=== PATIENT | female | born 1985 | race Caucasian/White ===

== ENCOUNTER 2024-10-10 15:33 | Observation (INO) | payer OTHER ==
[2024-10-10 15:40] LABS: Glucose,Whole Blood 211 mg/dL (70-110)
--- NOTE | 2024-10-10 16:00 | ED ---
Female Urogenital HPI - General Source: patient, RN notes reviewed Mode of arrival: wheelchair Limitations: no limitations - History of Present Illness MD Complaint: vaginal bleeding <Jacqui Correa - Last Filed: 10/10/24 15:59> <Yoli Hernández - Last Filed: 10/11/24 00:52> - General Chief complaint: Vaginal Bleeding Stated complaint: Vaginal Bleeding/Possible Miscarry Time Seen by Provider: 10/10/24 15:55 - History of Present Illness Initial comments: Quick Note: This is a 39-year-old female who presents to the emergency department for vaginal bleeding. She was told a week ago that she had a miscarriage at 8 weeks when she had an ultrasound and no heartbeat was ident ified. She was not having any bleeding at that time. States that yesterday she started to develop vaginal bleeding which has since been constant. (Jacqui Correa) 39-year-old female who presents emergency department for vaginal bleeding. Patient is G2, P1 and was approximately 8 weeks last week at her first ultrasound. She does follow with an out of network CADD TECHNICIAN. At the ultrasound there was no heartbeat identified. Patient was not having any bleeding until yesterday. States that this morning she started having very significant, bright red blood with clots. She has mild abdominal cramping. Patient feels lightheaded and dizzy when she stands. She denies dysuria, hematuria or difficulty voiding. Denies diarrhea, constipation, black or bloody stools. No concern for sexually transmitted infections. No nausea or vomiting. Denies syncope. No other alleviating, precipitating or modifying factors (Yoli Hernández) - Related Data Home Medications Medication Instructions Recorded Confirmed INSULIN LISPRO (humaLOG) [humaLOG] 0 units SQ DIRECTED 03/24/19 03/24/19 Insulin Glargine (Lantus) [Lantus] 0 unit SQ HS 03/24/19 03/24/19 Allergies Allergy/AdvReac Type Severity Reaction Status Date / Time No Known Allergies Allergy Verified 03/24/19 16:38 Review of Systems ROS Other: All systems not noted in ROS Statement are negative. <Jacqui Correa - Last Filed: 10/10/24 15:59> ROS Other: All systems not noted in ROS Statement are negative. <Yoli Hernández - Last Filed: 10/11/24 00:52> ROS Statement: Those systems with pertinent positive or pertinent negative responses have been documented in the HPI. Past Medical History Past Medical History: Dementia History of Any Multi-Drug Resistant Organisms: None Reported Additional Past Surgical History / Comment(s): wisdom teeth removed. Past Anesthesia/Blood Transfusion Reactions: No Reported Reaction Past Psychological History: No Psychological Hx Reported Smoking Status: Never smoker Past Alcohol Use History: None Reported Past Drug Use History: None Reported - Past Family History Mother Family Medical History: No Reported History <Jacqui Correa - Last Filed: 10/10/24 15:59> General Exam Limitations: no limitations <Jacqui Correa - Last Filed: 10/10/24 15:59> General appearance: alert, other (I will) Head exam: Present: atraumatic, normocephalic, normal inspection Eye exam: Present: normal appearance, PERRL, EOMI. Absent: scleral icterus, conjunctival injection, periorbital swelling Respiratory exam: Present: normal lung sounds bilaterally. Absent: respiratory distress, wheezes, rales, rhonchi, stridor Cardiovascular Exam: Present: tachycardia GI/Abdominal exam: Present: soft, normal bowel sounds. Absent: distended, tenderness, guarding, rebound, rigid Speculum exam: Present: vaginal bleeding, tissue Neurological exam: Present: alert, oriented X3, CN II-XII intact <Yoli Hernández - Last Filed: 10/11/24 00:52> - General Exam Comments Initial Comments: Visual Physical Exam Vital signs reviewed General: Well-appearing, nontoxic, no acute distress. Head: Normocephalic, atraumatic Eyes: PERRLA, EOMI ENT: Airway patent Chest: Nonlabored breathing Skin: No visual rash, normal skin tone Neuro: Alert and oriented 3 Musculoskeletal: No gross abnormalities (Jacqui Correa) Course Vital Signs 10/10/24 10/10/24 10/10/24 15:35 16:48 17:18 Temperature 98.1 F Pulse Rate 115 H 92 82 Respiratory 18 20 18 Rate Blood Pressure 116/73 104/65 110/66 O2 Sat by Pulse 100 95 95 Oximetry 10/10/24 18:14 Temperature Pulse Rate 109 H Respiratory 18 Rate Blood Pressure 110/67 O2 Sat by Pulse 98 Oximetry Medical Decision Making <Jacqui Correa - Last Filed: 10/10/24 15:59> - Lab Data Result diagrams: 10/10/24 18:18 10/10/24 16:00 <Yoli Hernández - Last Filed: 10/11/24 00:52> - Medical Decision Making I performed the QuickNote portion of this chart. Signed Jacqui Correa PA-C. (Jacqui Correa) Was pt. sent in by a medical professional or institution (LAMAR Gutierrez, BIOMASS BOILER OPERATOR, urgent care, hospital, or halfway...) When possible be specific @ -No Did you speak to anyone other than the patient for history (EMS, parent, family, police, friend...)? What history was obtained from this source @ -I spoke with the for history Did you review nursing and triage notes (agree or disagree)? Why? @ -I reviewed and agree with nursing and triage notes Were old charts reviewed (outside hosp., previous admission, EMS record, old EKG, old radiological studies, urgent care reports/EKG's, halfway records)? Report findings @ -No old charts were reviewed Differential Diagnosis (chest pain, altered mental status, abdominal pain women, abdominal pain men, vaginal bleeding, weakness, fever, dyspnea, syncope, headache, dizziness, GI bleed, back pain, seizure, CVA, palpatations, mental health, musculoskeletal)? @ -Differential Vaginal Bleeding: Spontaneous , threatened , molar , ectopic , bloody show, incompetent cervix, abruptioplacenta, placenta previa, uterine rupture, dysfunctional uterine bleeding, hemorrhage, uterine fibroids, this is not meant to be an all-inclusive list. EKG interpreted by me (3pts min.). @ -Not done X-rays interpreted by me (1pt min.). @ -None done CT interpreted by me (1pt min.). @ -None done U/S interpreted by me (1pt. min.). @ -Yes which demonstrates retained products of conception What testing was considered but not performed or refused? (CT, X-rays, U/S, labs)? Why? @ -None What meds were considered but not given or refused? Why? @ -None Did you discuss the management of the patient with other professionals (professionals i.e. Dr., PA, BIOMASS BOILER OPERATOR, lab, RT, psych nurse, protective services social worker, employee training specialist, teacher, youth corrections officer, case liner)? Give summary @ -Spoke with Dr. Birmingham who does present to the emergency department to evaluate the patient Was smoking cessation discussed for >3mins.? @ -No Was critical care preformed (if so, how long)? @ -No Were there social determinants of health that impacted care today? How? (Homelessness, low income, unemployed, alcoholism, drug addiction, transportation, low edu. Level, literacy, decrease access to med. care, prison, re hab)? @ -No Was there de-escalation of care discussed even if they declined (Discuss DNR or withdrawal of care, Hospice)? DNR status @ -No What co-morbidities impacted this encounter? (DM, HTN, Smoking, COPD, CAD, Cancer, CVA, ARF, Chemo, Hep., AIDS, mental health diagnosis, sleep apnea, morbid obesity)? @ -None Was patient admitted / discharged? Hospital course, mention meds given and route, prescriptions, significant lab abnormalities, going to OR and other pertinent info. @ -Upon arrival patient seen and evaluated in bed 30. Thorough history and physical exam was performed. Patient does have copious bleeding and therefore I did start with a speculum exam with the patient does have bright red blood and thick clots in the vagina. I do remove this with some tissue. Majority of the tissue was still stuck in the cervix. I did call and speak with Dr. Birmingham. She recommends ultrasound. She does come down to the emergency department to help evaluate the patient. Patient does have partial ultrasound performed which demonstrates significant debris within the uterus. Dr. Birmingham did recommend D&C. Patient was agreeable to this. She was taken to the OR in stable condition Undiagnosed new problem with uncertain prognosis? @ -No Drug Therapy requiring intensive monitoring for toxicity (Heparin, Nitro, Insulin, Cardizem)? @ -No Were any procedures done? @ -No Diagnosis/symptom? @ -Acute vaginal bleeding, incomplete miscarriage, tachycardia, Rh+ Acute, or Chronic, or Acute on Chronic? @ -Acute Uncomplicated (without systemic symptoms) or Complicated (systemic symptoms)? @ -Complicated Side effects of treatment? @ -No Exacerbation, Progression, or Severe Exacerbation? @ -No Poses a threat to life or bodily function? How? (Chest pain, USA, ME, pneumonia, PE, COPD, DKA, ARF, appy, cholecystitis, CVA, Diverticulitis, Homicidal, Suicidal, threat to staff... and all critical care pts) @ -Yes this patient does have significant bleeding (Yoli Hernández) - Lab Data Lab Results 10/10/24 10/10/24 10/10/24 Range/Units 15:39 15:55 16:00 WBC 14.30 H (4.50-10.00) 10*3/uL RBC 3.04 L (4.10-5.20) 10*6/uL Hgb 9.2 L (12.0-15.0) g/dL Hct 26.4 L (37.2-46.3) % MCV 86.8 (80.0-97.0) fL MCH 30.3 (27.0-32.0) pg MCHC 34.8 (32.0-37.0) g/dL Plt Count 310 (140-440) 10*3/uL MPV 10.0 (9.5-12.2) fL Immature Gran % (Auto) 0.3 % Neutrophils % 89.1 % Lymphocytes % 6.9 % Monocytes % 3.1 % Eosinophils % 0.3 % Basophils % 0.3 % Immature Gran # 0.05 H (0.00-0.04) 10*3/uL Neutrophils # 12.75 H (1.80-7.70) 10*3/uL Lymphocytes # 0.98 (0.90-5.00) 10*3/uL Monocytes # 0.44 (0.20-1.00) 10*3/uL Eosinophils # 0.04 (0.04-0.35) 10*3/uL Basophils # 0.04 (0.00-0.10) 10*3/uL Sodium (137-145) mmol/L Potassium (3.5-5.1) mmol/L Chloride (98-107) mmol/L Carbon Dioxide (22-30) mmol/L Anion Gap mmol/L BUN (7-17) mg/dL Creatinine (0.52-1.04) mg/dL Est GFR (CKD-EPI)AfAm (>60 ml/min/1.73 sqM) Est GFR (CKD-EPI)NonAf (>60 ml/min/1.73 sqM) Glucose (74-99) mg/dL POC Glucose (mg/dL) 211 H (70-110) mg/dL POC Glu Train Announcer ID July Calcium (8.4-10.2) mg/dL Total Bilirubin (0.2-1.3) mg/dL AST (14-36) U/L ALT (4-34) U/L Alkaline Phosphatase (38-126) U/L Total Protein (6.3-8.2) g/dL Albumin (3.5-5.0) g/dL HCG, Quant mIU/mL Blood Type O Positive Blood Type Recheck O Pos Bld Type Recheck Status No Antibody Screen NEGATIVE Spec Expiration Date 10/13/2024 - 235410/10/24 Range/Units 16:00 WBC (4.50-10.00) 10*3/uL RBC (4.10-5.20) 10*6/uL Hgb (12.0-15.0) g/dL Hct (37.2-46.3) % MCV (80.0-97.0) fL MCH (27.0-32.0) pg MCHC (32.0-37.0) g/dL Plt Count (140-440) 10*3/uL MPV (9.5-12.2) fL Immature Gran % (Auto) % Neutrophils % % Lymphocytes % % Monocytes % % Eosinophils % % Basophils % % Immature Gran # (0.00-0.04) 10*3/uL Neutrophils # (1.80-7.70) 10*3/uL Lymphocytes # (0.90-5.00) 10*3/uL Monocytes # (0.20-1.00) 10*3/uL Eosinophils # (0.04-0.35) 10*3/uL Basophils # (0.00-0.10) 10*3/uL Sodium 125 L (137-145) mmol/L Potassium 4.3 (3.5-5.1) mmol/L Chloride 96 L (98-107) mmol/L Carbon Dioxide 23 (22-30) mmol/L Anion Gap 6 mmol/L BUN 11 (7-17) mg/dL Creatinine 0.73 (0.52-1.04) mg/dL Est GFR (CKD-EPI)AfAm >90 (>60 ml/min/1.73 sqM) Est GFR (CKD-EPI)NonAf >90 (>60 ml/min/1.73 sqM) Glucose 231 H (74-99) mg/dL POC Glucose (mg/dL) (70-110) mg/dL POC Glu Train Announcer ID Calcium 8.8 (8.4-10.2) mg/dL Total Bilirubin 0.2 (0.2-1.3) mg/dL AST 17 (14-36) U/L ALT 13 (4-34) U/L Alkaline Phosphatase 67 (38-126) U/L Total Protein 5.2 L (6.3-8.2) g/dL Albumin 3.3 L (3.5-5.0) g/dL HCG, Quant 2095.8 mIU/mL Blood Type Blood Type Recheck Bld Type Recheck Status Antibody Screen Spec Expiration Date Disposition <Jacqui Correa - Last Filed: 10/10/24 15:59> Is patient prescribed a controlled substance at d/c from ED?: No Time of Disposition: 18:04 Decision to Admit Reason: Admit from EC Decision Date: 10/10/24 Decision Time: 18:04 <Yoli Hernández - Last Filed: 10/11/24 00:52> Clinical Impression: Vaginal bleeding, Incomplete miscarriage, Tachycardia Disposition: ADMITTED IP TO THIS [facility] Condition: Good
[2024-10-10 16:11] LABS: Basophils # (A) 0.04 10*3/uL (0.00-0.10); Basophils % (A) 0.3 %; Eosinophils # (A) 0.04 10*3/uL (0.04-0.35); Eosinophils % (A) 0.3 %; HCT 26.4 % (37.2-46.3); HGB 9.2 g/dL (12.0-15.0); Lymphocytes # (A) 0.98 10*3/uL (0.90-5.00); Lymphocytes % (A) 6.9 %; MCH 30.3 pg (27.0-32.0); MCHC 34.8 g/dL (32.0-37.0); MCV 86.8 fL (80.0-97.0); Monocytes # (A) 0.44 10*3/uL (0.20-1.00); Monocytes % (A) 3.1 %; Neutrophils # (A) 12.75 10*3/uL (1.80-7.70); Neutrophils % (A) 89.1 %; Platelet Count 310 10*3/uL (140-440); RBC 3.04 10*6/uL (4.10-5.20); RDW 12.4 % (11.5-14.5); WBC 14.30 10*3/uL (4.50-10.00)
[2024-10-10 16:32] LABS: ALT 13 U/L (4-34); AST 17 U/L (14-36); African American GFR (CKD) >90 (>60 ml/min/1.73 sqM); Albumin 3.3 g/dL (3.5-5.0); Alkaline Phosphatase 67 U/L (38-126); Anion Gap 6 mmol/L; Blood Urea Nitrogen 11 mg/dL (7-17); Calcium 8.8 mg/dL (8.4-10.2); Carbon Dioxide 23 mmol/L (22-30); Chloride 96 mmol/L (98-107); Glucose 231 mg/dL (74-99); Non-African American GFR(CKD) >90 (>60 ml/min/1.73 sqM); Potassium 4.3 mmol/L (3.5-5.1); Sodium 125 mmol/L (137-145); Total Protein 5.2 g/dL (6.3-8.2)
[2024-10-10 16:49] LABS: HCG,Quantitative Serum 2095.8 mIU/mL
[2024-10-10] MEDS: SODIUM CHLORIDE 0.9% 1,000 ML IV ONE (16:51)
--- NOTE | 2024-10-10 18:17 | P.HPOB ---
History of Present Illness H&P Date: 10/10/24 Chief Complaint: Incomplete AB, anemia, vaginal bleeding This is a 39-year-old G2, P1 at approximately 8 weeks of gestation that presents to the ER with complaints of increased vaginal bleeding over the last 12 hours. Patient states she was receiving care at an outside facility and approximately 1 week ago no heart tones were appreciated. Patient states no plan was discussed, she had declined oral Cytotec and had plans herself to go to [place] for uterine aspiration. Patient states bleeding has been progressively getting worse and she noted passage of clots. Patient denies passage of tissue at home, some tissue was appreciated in the ER, on ultrasound evaluation of the uterus retained products was appreciated with vascular structure within the endometrial cavity. NURSE OFFICE history #1 normal spontaneous vaginal delivery 03/2019 #2 current She states she is O+ Review of Systems Constitutional: Reports fatigue, Denies chills, Denies fever Ears, nose, mouth and throat: Denies headache Cardiovascular: Denies leg edema Respiratory: Denies dyspnea Gastrointestinal: Denies nausea, Denies vomiting Genitourinary: Reports Past Medical History Past Medical History: Dementia History of Any Multi-Drug Resistant Organisms: None Reported Additional Past Surgical History / Comment(s): wisdom teeth removed. Past Anesthesia/Blood Transfusion Reactions: No Reported Reaction Past Psychological History: No Psychological Hx Reported Smoking Status: Never smoker Past Alcohol Use History: None Reported Past Drug Use History: None Reported - Past Family History Mother Family Medical History: No Reported History Medications and Allergies Home Medications Medication Instructions Recorded Confirmed Type INSULIN LISPRO (humaLOG) [humaLOG] 0 units SQ DIRECTED 03/24/19 03/24/19 History Insulin Glargine (Lantus) [Lantus] 0 unit SQ HS 03/24/19 03/24/19 History Allergies Allergy/AdvReac Type Severity Reaction Status Date / Time No Known Allergies Allergy Verified 03/24/19 16:38 Exam Osteopathic Statement: *. No significant issues noted on an osteopathic structural exam other than those noted in the History and Physical/Consult. Vital Signs Temp Pulse Resp BP Pulse Ox 10/10/24 17:18 82 18 110/66 95 10/10/24 16:48 92 20 104/65 95 10/10/24 15:35 98.1 F 115 H 18 116/73 100 Intake and Output 10/10/24 10/10/24 10/10/24 06:59 14:59 22:59 Other: Weight 86.183 kg Upon entry the room blue pad underneath patient's bottom is noted to be completely saturated, ultrasound is there waiting to do examination. Patient has noted full bladder therefore voided, on transvaginal ultrasound noted retained products. Patient appears uncomfortable no shortness of breath is appreciated. Abdomen is soft Results Result Diagrams: 10/10/24 16:00 10/10/24 16:00 Abnormal Lab Results - Last 24 Hours (Table) 10/10/24 10/10/24 10/10/24 Range/Units 15:39 16:00 16:00 WBC 14.30 H (4.50-10.00) 10*3/uL RBC 3.04 L (4.10-5.20) 10*6/uL Hgb 9.2 L (12.0-15.0) g/dL Hct 26.4 L (37.2-46.3) % Immature Gran # 0.05 H (0.00-0.04) 10*3/uL Neutrophils # 12.75 H (1.80-7.70) 10*3/uL Sodium 125 L (137-145) mmol/L Chloride 96 L (98-107) mmol/L Glucose 231 H (74-99) mg/dL POC Glucose (mg/dL) 211 H (70-110) mg/dL Total Protein 5.2 L (6.3-8.2) g/dL Albumin 3.3 L (3.5-5.0) g/dL Assessment and Plan (1) Incomplete Current Visit: Yes Status: Acute Code(s): O03.4 - INCOMPLETE SPONTANEOUS WITHOUT COMPLICATION SNOMED Code(s): 135442923 (2) Tachycardia Current Visit: Yes Status: Acute Code(s): R00.0 - TACHYCARDIA, UNSPECIFIED SNOMED Code(s): 2732914 (3) Vaginal bleeding Current Visit: Yes Status: Acute Code(s): N93.9 - ABNORMAL UTERINE AND VAGINAL BLEEDING, UNSPECIFIED SNOMED Code(s): 069746988 Plan: assessment Incomplete AB anemia Plan suction dilation and curettage given retained products and continued vaginal bleeding with passage of large clots. Procedures reviewed and informed consent is obtained. OR is notified and anesthesia will come down to see patient.
--- NOTE | 2024-10-10 18:24 | US ---
EXAMINATION TYPE: Transabdominal DATE OF EXAM: 10/10/2024 6:04 PM COMPARISON: NONE CLINICAL INDICATION: Female, 39 years old with history of miscarriage, heavy bleeding, retained tissu e; Bleeding retained products. Dr Birmingham in room while ultrasound was performed taking patient to OR f or a D/C. TECHNIQUE: Transvaginal (TV) with grayscale and color Doppler imaging including first trimester pregn amberly. FINDINGS: EXAM MEASUREMENTS: GESTATIONAL AGE / DATING Physician Established: approximately 8 weeks per Doctor. MATERNAL ANATOMY Uterus: 8.5 x 4.6 x 5.0 cm Fluid seen in cervical canal. Right Ovary: obscured by bowel gas Left Ovary: obscured by bowel gas Post CDS / Adnexa: wnl Presence of free fluid: no IUP: No IUP seen at this time Beta HcG (if available): 2094.8 Thickened endometrium with color flow suggestive of retained products. IMPRESSION: Findings most consistent with retained products of conception. No evidence for intrauterine . [facility], , 10/10/2024 6:22 PM
[2024-10-10] MEDS: IV FLUID CONTINUATION 1,000 ML IV ONE (18:30)
[2024-10-10 18:33] LABS: Glucose,Whole Blood 197 mg/dL (70-110)
[2024-10-10] MEDS: ONDANSETRON 4 MG/2 ML VIAL IVP STA (18:35)
[2024-10-10] MEDS: MIDAZOLAM 2 MG/2 ML VIAL IV ONE (18:36)
[2024-10-10] MEDS ORDERED: SUCCINYLCHOLINE CHLORIDE 200 MG/10 ML VIAL IV ONE (18:57)
[2024-10-10] MEDS ORDERED: ONDANSETRON 4 MG/2 ML VIAL ONE (18:57)
[2024-10-10] MEDS ORDERED: MIDAZOLAM 2 MG/2 ML VIAL ONE (18:57)
[2024-10-10] MEDS ORDERED: LIDOCAINE 1% INJ 10MG/ML (20 ML MDV) ONE (18:57)
[2024-10-10] MEDS ORDERED: KETOROLAC 15 MG/ML 1 ML VIAL ONE (18:57)
[2024-10-10] MEDS ORDERED: PROPOFOL 10 MG/ML 20 ML VIAL IV ONE (18:57)
[2024-10-10 19:09] LABS: HCT 22.2 % (37.2-46.3); HGB 8.0 g/dL (12.0-15.0); MCH 30.9 pg (27.0-32.0); MCHC 36.0 g/dL (32.0-37.0); MCV 85.7 fL (80.0-97.0); Platelet Count 276 10*3/uL (140-440); RBC 2.59 10*6/uL (4.10-5.20); RDW 12.1 % (11.5-14.5); WBC 13.94 10*3/uL (4.50-10.00)
[2024-10-10 19:26] VITALS: TEMP 97.4
--- NOTE | 2024-10-10 19:26 | P.OP ---
Date of Procedure: 10/10/24 Preoperative Diagnosis: Incomplete AB, anemia Postoperative Diagnosis: Same Procedure(s) Performed: Suction dilation and curettage Anesthesia: ALEX Surgeon: Leydi Birmingham Estimated Blood Loss (ml): 25 IV fluids (ml): 400 Urine output (ml): 100 (Clear yellow) Pathology: none sent Condition: stable Disposition: PACU Indications for Procedure: Continued vaginal bleeding, known 8-week low malignant missed AB 1 week prior. Hemoglobin on admission 9.2, decreased to 8 in the operating room Operative Findings: Large amount of products of conception noted on suction dilation curettage Description of Procedure: Patient was taken back to the operating room where general anesthesia was obtained without difficulty by the anesthesia department. She was prepped and draped in normal sterile fashion the dorsolithotomy position. A red rubber catheter was used to drain the bladder of approximately 100 cc of clear yellow urine. A weighted speculum is placed in the posterior vaginal vault, the anterior lip of the cervix was visualized and grasped with a single-tooth tenaculum. The endocervical canal was noted to be significantly dilated therefore an 8 curved suction curette was placed through the cervix and toward the endometrial cavity a large amount of products of conception were removed after multiple passes. A gentle sharp curettage revealed no further products. 1 additional pass of the suction curette was performed with no further tissue appreciated. Uterus was noted to be firm at this time bleeding had slowed significantly. The single-tooth tenaculum was taken off of the anterior lip of the cervix. All instruments were removed from the patient's vaginal vault. All counts to be correct x 2. Patient tolerated procedure well and was taken the recovery in awake and stable condition
[2024-10-10 19:28] LABS: Glucose,Whole Blood 233 mg/dL (70-110)
[2024-10-10] MEDS: INSULIN LISPRO (HumaLOG) 100 UNIT/ML 10 mL VL SQ ONE (19:33)
[2024-10-10 20:38] VITALS: BP 117/72; PULSE 80; RESP 16
== END 2024-10-10 20:45 | disposition home or self-care (01) ==
LOC: EC 15:33 → MERGE 18:05 → 6NMEDSUR 18:05 → 4FBP 18:27
PROVIDERS: ADMIT Obstetrics & Gynecology Obstetrics; ATTEND Obstetrics & Gynecology Obstetrics
DX: O03.4 Incomplete spontaneous abortion without complication (principal); O26.891 Other specified pregnancy related conditions, first trimester; R00.0 Tachycardia, unspecified; O99.341 Other mental disorders complicating pregnancy, first trimester; F03.90 Unspecified dementia, unspecified severity, without behavioral disturbance, psychotic disturbance, mood disturbance, and anxiety; O99.011 Anemia complicating pregnancy, first trimester; D64.9 Anemia, unspecified; Z3A.08 8 weeks gestation of pregnancy; Z79.4 Long term (current) use of insulin
CPT/HCPCS: 99285; 36415; 86900; 86901; 80053; 85025; 85027; 86850; 84702; 76801; 76817; 59812; G0378; J2250; J0330; J2405; J2003; J1885; J2704; 88305